=== PATIENT | male | born 1955 | race Caucasian/White ===

== ENCOUNTER 2019-01-11 09:08 | Observation (INO) | payer OTHER ==
[~2019-01-11] VITALS: Ht 172.7 cm; Wt 100.7 kg
[2019-01-11] VITALS (22 sets, daily range): BP systolic 109–153; BP diastolic 8–93
[~2019-01-11 09:08] MED LIST: ASA5UEC PO; CARVEDILOL12.5 MG PO; DICLOFENAC SODI75 MG PO; IMDUR 30 MG TAB30 M1 PO; JANUVIA50 MG PO; LIPITOR40 MG PO; LISINOPRIL20 MG PO; NITROGLYCERIN0.4 MG SL; PLAVIX 75 MG TA75 MG PO; SIMVASTATIN40 MG PO; TRILIPIX135 MG PO
[2019-01-11 10:11] LABS: HEMOGLOBIN 14.6 gm/dL (14.0-18.0); MCHC 34.8 g/dL (28.0-37.0); MPV 10.8 fl. (7.2-11.1); RBC 4.72 mil/uL (4.50-6.00); RDW-CV 12.4 % (10.5-14.5); WBC 5.4 thou/uL (4.0-11.0)
[2019-01-11 10:16] LABS: APTT 26.6 Seconds (25.0-31.3); PROTIME 10.6 Seconds (9.20-11.50)
[2019-01-11 10:19] LABS: ANION GAP 9 mmol/L (7-16); BUN 16 mg/dL (7-18); CHLORIDE 100 mmol/L (98-107); CO2 26 mmol/L (21-32); CREATININE 1.3 mg/dL (0.6-1.3); GLUCOSE 264 mg/dL (70-99); POTASSIUM 4.3 mmol/L (3.5-5.1); SODIUM 135 mmol/L (136-145)
[2019-01-11 10:23] LABS: ALBUMIN 3.7 g/dL (3.4-5.0); ALKALINE PHOSPHATASE 43 U/L (46-116); CHOLESTEROL 185 mg/dL (<200); HDL CHOLESTEROL 37 mg/dL (>40); LDL CHOLESTEROL 117 mg/dL (<100); SERUM ASSESSMENT Clear; SGOT 13 U/L (15-37); SGPT 32 U/L (30-65); TOTAL BILIRUBIN 0.5 mg/dL (<0.1-1.0); TOTAL PROTEIN 7.9 g/dL (6.4-8.2); TRIGLYCERIDE 155 mg/dL (<150); VLDL 31 mg/dL (<40)
[2019-01-11] MEDS ORDERED: FISH OIL 1,0001 EAC9 PO (16:39)
[2019-01-12] VITALS: BP 135/63
[2019-01-12 06:08] LABS: HEMATOCRIT 39.7 % (42.0-52.0); HEMOGLOBIN 13.9 gm/dL (14.0-18.0); MCH 31.1 pg (26.0-34.0); MCHC 35.2 g/dL (28.0-37.0); MCV 88.5 fL (80.0-100.0); MPV 10.6 fl. (7.2-11.1); RBC 4.48 mil/uL (4.50-6.00); RDW-CV 12.3 % (10.5-14.5); WBC 7.4 thou/uL (4.0-11.0)
[2019-01-12 06:37] LABS: ALBUMIN 3.6 g/dL (3.4-5.0); CALCIUM 9.4 mg/dL (8.5-10.1); CREATININE 1.4 mg/dL (0.6-1.3); TOTAL BILIRUBIN 0.5 mg/dL (<0.1-1.0); TOTAL PROTEIN 7.6 g/dL (6.4-8.2)
[2019-01-12 07:00] LABS: TROPONIN-I LEVEL 0.29 ng/mL (<0.06)
[2019-01-12 08:00] VITALS: BP 124/69
--- NOTE | 2019-01-12 08:05 | NUR ---
PT CARE ASSUMED AT 1930. SAT MAINTAINED IN RA. ALERT AND ORIENTED XX4. CATH SITE C/D/I. DENIES PAIN AND SOB. CALL LIGHT WITHIN REACH AND BED IN LOW POSITION. HOURLY ROUNDING DONE FOR PT SAFETY.
--- NOTE | 2019-01-12 10:00 | NUR ---
ASSUMED PT CARE AT 0800, AOX4, UP AD TYREE, 02 SAT 90'S RA. TRACING SR ON TELE. PT DENIES PAIN. PT FOR DISCHARGE. R JEROMY, C/D/I. VSS, AM ASSESSMENT CHARTED, MEDS GIVEN PER MAR. WILL CONITNUE TO MONITOR.
[2019-01-12 10:13] VITALS: BP 124/69
--- NOTE | 2019-01-12 10:55 | EKG ---
[place] [address] ELECTROCARDIOGRAM REPORT Name: LISETTE KEYES Room: [address]#: [id number] Admission: 01/11/19 Attend Phys: Shaun Flores MD, Discharge: 01/12/19 Date of : 59 Report #: [id number] THIS REPORT FOR: //name// [facility] Test Date: 2019-01-11 Test Time: 10:12:13 Pat Name: LISETTE KEYES Department: Room: [facility] Gender: M Supervisor Curing Room: [facility] : 1955 Requested By: Shaun Flores Order Number: [id number] Nanette MD: Shahriar Hayes Measurements Intervals [place] Rate: 57 P: 24 GA: 177 QRS: 15 QRSD: 98 T: 105 QT: 411 QTc: 401 Interpretive Statements Sinus rhythm Nonspecific T abnormalities, lateral leads Compared to ECG 01/18/2016 03:49:07 T-wave abnormality now present Electronically Signed On 01-12-2019 10:54:50 [employer] by Shahriar Hayes [email or web address] <ELECTRONICALLY SIGNED> By: Shahriar Hayes MD, FACC 01/12/19 1054 1012 1012 Shahriar Hayes MD, [facility] /EPI
--- NOTE | 2019-01-12 10:56 | NUR ---
DISCHARGED PLAN DISCUSSED WITH THE PT. MEDICATION PACKET GIVEN. REMINDED TO FOLLOW UP WITH CARDIOLOGY AND CARDIAC REHAB, COMMUNICATE UNDERSTANDING. ALL BELONGINGS PACKED AND CHECKED. LEFT THE UNIT AMBULATORY AT 1050.
--- NOTE | 2019-01-12 10:59 | EKG ---
[place] [address] ELECTROCARDIOGRAM REPORT Name: LISETTE KEYES Room: [address]#: [id number] Admission: 01/11/19 Attend Phys: Shaun Flores MD, Discharge: 01/12/19 Date of : 59 Report #: [id number] THIS REPORT FOR: //name// [facility] Test Date: 2019-01-11 Test Time: 14:08:01 Pat Name: LISETTE KEYES Department: Room: [facility] Gender: M Sash Maker: : 1955 Requested By: Shaun Flores Order Number: [id number] Nanette MD: Shahriar Hayes Measurements Intervals [place] Rate: 62 P: 36 [place]: 177 QRS: 33 QRSD: 99 T: 73 QT: 432 QTc: 439 Interpretive Statements Sinus rhythm Compared to ECG 01/18/2016 03:49:07 No significant changes Electronically Signed On 01-12-2019 10:59:32 TOB[employer] PREVENTION HEALTH EDUCATOR by Shahriar Hayes [email or web address] <ELECTRONICALLY SIGNED> By: Shahriar Hayes MD, [facility] 01/12/19 1059 1408 1408 Shahriar Hayes MD, FACC /EPI
--- NOTE | 2019-01-14 14:18 | CARD ---
[address] [address] CARDIAC CATH REPORT Name: LISETET KEYES Irena Room: [address] Briana Silva#: [id number] Admission: 01/11/19 Attend Phys: Shaun Flores MD, Discharge: 01/12/19 Date of : 59 Report #: [id number] THIS REPORT FOR: //name// APPROVED REPORT Study performed: 01/11/2019 10:59:01 Patient Details Patient Status: Out-Patient Room #: The patient is a 63 year-old male Event Personnel Kristel Mcnulty RN RN, Qamar Penn Reeves, Adam RTR Monitor, Shaun Flores Director Of Partner Marketing, Marija Deutsch RTR Monitor, Manuela Trujillo Operator Helper Procedures Performed Art Access - R femoral artery Left Heart Cath w/or w/o Coronaries LHC PIPE Place w/wo Plasty Single CIRC PIPE Place w/wo Plasty Addl BR OM 1 Hemostasis with Manual pressure Indication Positive stress test Risk Factors Obesity, Peripheral Vascular Disease, Hypercholesterolemia, Hypertension, Tobacco History () Previous Procedures/Diagnoses Previous PCI, Previous MIPrevious Vascular Surgery Admission/Lab Medications/Medications given during procedure Angiomax bolus and infusion Procedure Narrative The patient was brought electively to the Cardiac Catheterization Laboratory and was prepped and draped in a sterile manner. The right femoral was infiltrated with 2% Lidocaine subcutaneous anesthesia. A [place] 6 Fr sheath was inserted into the right femoral artery. Coronary angiography was performed using coronary diagnostic catheters. The right coronary system was accessed and visualized with a Diagnostic 3 DRC 6 Fr catheter. The left coronary system was accessed and visualized with a Diagnostic JL 4 6 Fr catheter. The left ventricle was accessed and visualized with a Diagnostic Pig 6 Fr catheter. Left ventricular/[place] [address] CARDIAC CATH REPORT Name: WALILISETTE Room: [address] Shira#: [id number] Admission: 01/11/19 Attend Phys: Shaun Flores MD, Discharge: 01/12/19 Date of : 59 Report #: [id number] catheter pullback. Left ventriculogram was performed in ALEMAN projection. Pre-demployment femoral angiogram was performed . Closure device was deployed with a 6 Fr Angioseal. Hemostasis was obtained with manual pressure following sheath removal without any complications. The patient tolerated the procedure well and there were no complications associated with the procedure. There was no hematoma. Intraoperative Conscious Sedation Sedation start time: 11:40 Case end Time: 13:20 Fentanyl 25 mcg Versed 2 mg Fluoro Time: 22.7 minutes Dose: DAP 436856 cGycm2 3458 mGy Contrast Type and Amount: Visipaque 300 ml Coronary Angiography The patient's coronary anatomy is right dominant. Diagnostic Cath Left Main 0% narrowing LAD 30% proximal and mid LAD narrowing Circumflex 80% proximal circumflex stenosis with 90% tubular narrowing of the proximal portion of the prominent first marginal branch Right Coronary Dominant vessel with 30% proximal narrowing Left Ventriculography The left ventricle is normal in size with normal contractility. The left ventricular ejection fraction is estimated to be 65%. Left ventricular wall motion abnormalities are not present. There is no mitral insufficiency. Hemodynamics The aortic pressure is 148/80 mmHg with a mean of 106 mmHg. The left ventricular pressure is 177/-2 mmHg with a mean of mmHg. The left ventricular end diastolic pressure is 8 mmHg. There was no gradient across the aortic valve upon pullback. PCI Technique Lesion Anticoagulation was achieved with Angiomax Drip. Patient was preloaded with Angiomax IV 16.5 ml. Percutaneous coronary intervention was performed on the first obtuse marginal branch segment. The lesion stenosis prior to intervention was 90% with JACQUELIN 3 flow. A 6FR XB 3.0 100CM Guide Catheter [place] [address] CARDIAC CATH REPORT Name: LISETTE KEYES Room: [address] Briana Silva#: [id number] Admission: 01/11/19 Attend Phys: Shaun Flores MD, Discharge: 01/12/19 Date of : 59 Report #: [id number] ostium. A IG: BMW 190cm Interventional Guidewire was used to cross the lesion. BALLOON DILATION A Balloon catheter Mini Trek RX 1.2X8 was inserted and inflated up to 18.00atm for 10seconds. Additional Inflation: 18.00atm for 8seconds. Additional Inflation: 18.00atm for 8seconds. Mini Trek 2.0 x 12 inserted/ inflated for 7 sec @ 10 MARIA ALEJANDRA, 8 sec @ 12 MARIA ALEJANDRA, and7 sec @ 10 MARIA ALEJANDRA STENT DEPLOYMENT A drug-eluting stent Alexander RX Stent 2.0X26mm was inserted and inflated up to 10.00atm for 10seconds. Additional Inflation: 12.00atm for 7seconds. POST STENT DEPLOYMENT BALLOON DILATION A Balloon catheter NC Trek RX 2.25 X 8 was inserted and inflated up to 16.00atm for 11seconds. Additional Inflation: 18.00atm for 8seconds. Final angiography reveals 10 % stenosis with JACQUELIN 3 flow. COMMENTS Percutaneous coronary intervention was technically complex by virtue of the calcified bifurcation proximal circumflex first marginal disease requiring significant lesion Preparation and bifurcation stenting PCI Technique Lesion 2 Percutaneous Coronary Intervention was performed on the proximal circumflex artery segment. Patient was preloaded with Angiomax IV 16.5 ml. The lesion stenosis prior to intervention was 80% with JACQUELIN 3 flow. A 6FR XB 3.0 100CM Guide Catheter was used to engage the left ostium. A IG: ProwaterFlex 180CM Interventional Guidewire was used to cross the lesion. Balloon Dilation A Balloon catheter Trek RX 2.5 X 12 was inserted and inflated up to 12.00atm for 10seconds. Additional Inflation: 15.00atm for 10seconds. Trek 2.5 x12 inserted/ inflated for 11 sec @ 15 MARIA ALEJANDRA Stent Deployment A drug-eluting stent Alexander RX Stent 2.25X8mm was inserted and inflated up to 16.00atm for 8seconds. Additional Inflation: 20.00atm [place] [address] CARDIAC CATH REPORT Name: LISETTE KEYES Room: [address] Briana SchwartzClinton#: [id number] Admission: 01/11/19 Attend Phys: Shaun Flores MD, Discharge: 01/12/19 Date of : 59 Report #: [id number] 10seconds. Additional Inflation: 22.00atm for 12seconds. Final angiography reveals 10 % stenosis with JACQUELIN 3 flow. Conclusion #1 significant coronary artery disease characterized by the following: A 30% proximal and mid LAD narrowing B 80% proximal circumflex stenosis with 90% tubular stenosis of the first marginal branch C 30% narrowing of the proximal portion of the dominant right coronary artery #2 normal left ventricular systolic function, estimate ejection fraction being 65% #3 normal left-sided hemodynamic study #4 successful percutaneous coronary intervention with deployment of a drug-eluting stent at site of 90% tubular first marginal stenosis with 10% residual narrowing #5 successful percutaneous coronary intervention with deployment of a drug-eluting stent at site of 80% proximal circumflex stenosis with 10% residual narrowing and JACQUELIN-3 flow the distal vessel Recommendations Cardiac Risk Reduction Program Aggressive Medical Therapy Medications Administered Aspirin (any) Clopidogrel Diagnostic Cath Approved by: Shaun Flores MD Date/Time: 01/14/2019 14:16:42 <ELECTRONICALLY SIGNED> By: Shaun Flores MD, FACC 01/14/19 1418 1418 1418Shaun Flores MD, FACC /INF
--- NOTE | 2019-01-14 15:32 | D ---
[address] [address] DISCHARGE SUMMARY Name: WALILISETTE R Room: [address] Briana Silva#: [id number] Admission: 01/11/19 Attend Phys: Shaun Flores MD, Discharge: 01/12/19 Date of : 59 Report #: [id number] THIS REPORT FOR: //name// CC: Shaun Flores [facility] Physician staff DATE OF SERVICE: 01/12/2019 FINAL DISCHARGE DIAGNOSES: 1. Abnormal nuclear stress test with inducible lateral ischemia. 2. Coronary artery disease. 3. History of remote myocardial infarction with usm-ye-gtcaxzfu cardiac arrest. 4. Severe peripheral vascular disease. 5. Hypertension. 6. Hyperlipidemia. 7. Type 2 diabetes. PROCEDURES: 01/11/2019 -- left heart catheterization, left ventriculography, selective coronary arteriography and percutaneous coronary intervention with stenting of the proximal circumflex and first marginal branch of the circumflex. The patient is a pleasant 63-year-old male with aggressive coronary and peripheral arterial disease. He is status post remote myocardial infarction and multiple stenting procedures of the circumflex. He also has had lower extremity revascularization. Of late, he notes some dyspnea on exertion, but denies chest discomfort. Recent nuclear stress test revealed large inducible lateral defect. In that setting, cardiac catheterization was performed. He had no significant stenoses of the left main, LAD, or right coronary artery. He had 90% tubular stenosis of the first marginal branch with 80%-90% proximal circumflex narrowing. I performed angioplasty with stenting of the first marginal branch and angioplasty with stenting of the proximal circumflex from which the first marginal branch emanated with 0% and 10% residual narrowings. Troponin I louisa inconsequentially to 0.29. LABORATORY DATA: On 01/12/2019 revealed a sodium 137, potassium 4.0, BUN 16, creatinine 1.4, glucose 232. Hemoglobin 13.9, white blood cell count 7400 with 114,000 platelets. There was good hemostasis at the right femoral site of catheterization. DISCHARGE MEDICATIONS: The patient was discharged to home on the following medications: Enteric coated aspirin 325 mg daily, atorvastatin 40 mg at bedtime, carvedilol 12.5 mg b.i.d., clopidogrel 75 mg daily with 600 [place] [id number] DISCHARGE SUMMARY Name: LISETTE KEYES Irena Room: [address] Shira#: [id number] Admission: 01/11/19 Attend Phys: Shanu Flores MD, Discharge: 01/12/19 Date of : 59 Report #: [id number] dillon-procedural dose, Trilipix 135 mg daily, fish oil 2 tablets daily, Januvia 100 mg daily. He is scheduled to return to see my nurse practitioner, Quiana Lal, on 01/20/2019 at 11:30 and myself 03/01/2019 at 11:40. Thus, the patient is discharged to home in stable condition with followup as iterated above. <ELECTRONICALLY SIGNED> By: Shaun Flores MD, FACC 01/14/19 1532 1454 1610Jolia Flores MD, FACC /nt
== END 2019-01-12 10:47 | disposition home or self-care (01) ==
LOC: M.CL 09:08 → M.2W 13:35 → M.TBA-CV 13:35 → M.2W 16:17
PROVIDERS: ADMIT Internal Medicine
DX: I25.10 Atherosclerotic heart disease of native coronary artery without angina pectoris (principal); I25.2 Old myocardial infarction; E11.51 Type 2 diabetes mellitus with diabetic peripheral angiopathy without gangrene; I73.9 Peripheral vascular disease, unspecified; I10 Essential (primary) hypertension; E78.5 Hyperlipidemia, unspecified

== ENCOUNTER 2020-04-03 09:05 | Observation (INO) | payer OTHER ==
[~2020-04-03] VITALS: Ht 172.7 cm; Wt 96.2 kg
[2020-04-03] VITALS (16 sets, daily range): BP systolic 108–143; BP diastolic 60–86
--- NOTE | ~2020-04-03 | D ---
[address] [address] DISCHARGE SUMMARY Name: LISETTE KEYES Room: [address] Briana Silva#: [id number] Admission: 04/03/20 Attend Phys: Shaun Flores MD, Discharge: 04/04/20 Date of : 59 Report #: [id number] THIS REPORT FOR: cc: Marty Austin Aaron DO Shaun Flores MD [facility] DATE OF SERVICE: 04/04/2020 FINAL DISCHARGE DIAGNOSES: 1. Abnormal nuclear stress test. 2. Coronary artery disease. 3. History of remote myocardial infarction. 4. Status post percutaneous coronary intervention to the circumflex. 5. Aortic stenosis. 6. Carotid stenosis. 7. Peripheral vascular disease with right lower extremity claudication. 8. Hyperlipoproteinemia. 9. Type 2 diabetes. PROCEDURES: 04/03/2020 -- Left heart catheterization, selective coronary arteriography, percutaneous coronary intervention with deployment of a drug-eluting stent in the first marginal branch of the circumflex and angioplasty of the proximal circumflex. The patient is a pleasant 64-year-old male with diabetes and hyperlipidemia. He has known peripheral vascular disease and is status post bilateral lower extremity revascularization percutaneously on the right and with fem-pop bypass on the left. Recently, he has noted some dyspnea on exertion and right lower extremity discomfort with ambulation. Nuclear stress test revealed inducible lateral ischemia. In this context, cardiac catheterization was performed. This revealed 90% in-stent restenosis in the first marginal branch of the circumflex with 70% proximal circumflex narrowing involving the takeoff of the first marginal. There were 40% LAD and right coronary narrowings. There was a 50 mmHg pullback gradient across the aortic valve reflecting moderately severe aortic stenosis. The patient underwent PCI with deployment of a 2.0 x 15 mm [place] drug-eluting stent in the first marginal with 10% residual narrowing and angioplasty of the proximal circumflex with 10% residual narrowing. Troponin louisa inconsequentially to 0.09. He did well post-procedurally and there was good hemostasis at the right femoral site of catheterization. He ambulated in [place] [address] DISCHARGE SUMMARY Name: LISETTE KEYES [address]#: [id number] Admission: 04/03/20 Attend Phys: Shaun Flores MD, Discharge: 04/04/20 Date of : 59 Report #: [id number] Laboratory revealed sodium 138, potassium 3.7, BUN 16, creatinine 1.2, glucose 216. Hemoglobin 13.8, white blood cell count 6100, 98,000 platelets. The patient is discharged to home on the following medications: 1. Clopidogrel 75 mg daily with a 300 mg dillon-procedural dose. 2. Trilipix 135 mg daily. 3. Carvedilol 12.5 mg b.i.d. 4. Enteric-coated aspirin 325 mg daily. 5. Januvia 50 mg daily. 6. Isosorbide mononitrate 30 mg daily. 7. Glipizide 10 mg b.i.d. 8. Diltiazem 180 mg daily. 9. Atorvastatin 40 mg daily. He is scheduled to have a CT angiogram of the aorta with runoff in the right lower extremity because of claudication in the right lower extremity and this is scheduled for approximately 4 weeks. I will plan to see the patient in followup on 04/25/2020 at 0900 at the [place] office. Therefore, the patient is discharged to home in stable condition on the aforementioned medications with followup as described above. By: [id number] Flores MD, FACC /nt
[~2020-04-03 09:05] MED LIST changes: +DILTIAZEM ER180 M2 PO; +FISH OIL 1,0001 EAC9 PO; +GLIPIZIDE 10 MG10 MG PO
[2020-04-03 09:42] LABS: HEMATOCRIT 43.7 % (42.0-52.0); HEMOGLOBIN 15.1 gm/dL (14.0-18.0); MCH 29.5 pg (26.0-34.0); MCHC 34.5 g/dL (28.0-37.0); MCV 85.5 fL (80.0-100.0); MPV 10.3 fl. (7.2-11.1); RBC 5.11 mil/uL (4.50-6.00); RDW-CV 13.1 % (10.5-14.5); WBC 6.5 thou/uL (4.0-11.0)
[2020-04-03 09:55] LABS: ANION GAP 13 mmol/L (7-16); BUN 19 mg/dL (7-18); CALCIUM 9.7 mg/dL (8.5-10.1); CHLORIDE 102 mmol/L (98-107); CO2 23 mmol/L (21-32); CREATININE 1.3 mg/dL (0.6-1.3); GLUCOSE 383 mg/dL (70-99); SODIUM 138 mmol/L (136-145)
[2020-04-03 10:00] LABS: ALBUMIN 3.8 g/dL (3.4-5.0); ALKALINE PHOSPHATASE 54 U/L (46-116); SGOT 9 U/L (15-37); SGPT 23 U/L (30-65); TOTAL BILIRUBIN 0.3 mg/dL (<0.1-1.0); TOTAL PROTEIN 7.7 g/dL (6.4-8.2)
[2020-04-03] MEDS ORDERED: LIPITOR40 MG PO (10:04)
[2020-04-03 10:17] LABS: CHOLESTEROL 216 mg/dL (<200); HDL CHOLESTEROL 43 mg/dL (>40); LDL CHOLESTEROL 121 mg/dL (<100); TRIGLYCERIDE 262 mg/dL (<150); VLDL 52 mg/dL (<40)
[2020-04-03 10:18] LABS: SERUM ASSESSMENT Clear
[2020-04-03 10:22] LABS: APTT 25.3 Seconds (25.0-31.3); PROTIME 10.3 Seconds (9.20-11.50)
--- NOTE | 2020-04-03 14:01 | EKG ---
[place] [address] ELECTROCARDIOGRAM REPORT Name: WALILISETTE Room: [address]R.#: [id number] Admission: 04/03/20 Attend Phys: Chelsey Leblanc Discharge: Date of : 59 Date of Service: 04/03/20 1021 Report #: [id number] THIS REPORT FOR: //name// [facility] Test Date: 2020-04-03 Test Time: 10:21:22 Pat Name: LISETTE KEYES Department: Room: [facility] Gender: M Commercial Pilot: : 1955 Requested By: Shaun Flores Order Number: [id number] Reading MD: Shaun Flores Measurements Intervals [place] Rate: 52 P: 20 ME: 182 QRS: 13 QRSD: 101 T: 108 QT: 442 QTc: 411 Interpretive Statements Sinus rhythm Abnormal R-wave progression, late transition Nonspecific T abnormalities, lateral leads Compared to ECG 01/11/2019 14:08:01 T-wave abnormality now present Electronically Signed On 04-03-2020 14:01:47 POLITICAL SCIENTIST by Shaun Flores [email or web address] <ELECTRONICALLY SIGNED> By: Shaun Flores MD, [facility] 04/03/20 1401 1021 1021 Shaun Flores MD, [facility] /EPI
--- NOTE | 2020-04-03 14:04 | EKG ---
[place] [address] ELECTROCARDIOGRAM REPORT Name: WALILISETTE [address]#: [id number] Admission: 04/03/20 Attend Phys: Chelsey Leblanc Discharge: Date of : 59 Date of Service: 04/03/20 1339 Report #: [id number] THIS REPORT FOR: //name// [facility] Test Date: 2020-04-03 Test Time: 13:39:53 Pat Name: LISETTE KEYES Department: Room: [facility] Gender: M Manager Market Research: : 1955 Requested By: Shaun Flores Order Number: [id number] Nanette MD: Shaun Flores Measurements Intervals [place] Rate: 55 P: 19 MS: 189 QRS: 38 QRSD: 103 T: 122 QT: 441 QTc: 422 Interpretive Statements Sinus rhythm Nonspecific T abnormalities, lateral leads Compared to ECG 04/03/2020 10:21:22 No significant changes Electronically Signed On 04-03-2020 14:04:04 CUPOLA PATCHER by Shaun Flores [email or web address] <ELECTRONICALLY SIGNED> By: Shaun Flores MD, [facility] 04/03/20 1404 1339 1339 Shaun Flores MD, [facility] /EPI
--- NOTE | 2020-04-03 14:31 | CARD ---
[address] [address] CARDIAC CATH REPORT Name: LISETTE KEYES Irena Room: [address] Briana Silva#: [id number] Admission: 04/03/20 Attend Phys: Shaun Flores MD, Discharge: Date of : 59 Report #: [id number] THIS REPORT FOR: cc: Marty Austin Aaron DO ~ Sahun Flores MD [facility] APPROVED REPORT Study performed: 04/03/2020 11:30:58 Patient Details Patient Status: Out-Patient Room #: The patient is a 64 year-old male Event Personnel Shaun Flores Director Automotive, Elva Celis RN Pediatric Clinical Nurse Specialist, Qamar Penn DIRECTOR EHS Monitor, Marija Deutsch RTR Scrub Procedures Performed Art Access - R femoral artery* Left Heart Cath w/or w/o Coronaries [id number] [facility] PIPE Place w/wo Plasty Single OM [id number] PTCA Single Vessel CIRC [id number] PCISINGLE Indication Positive stress test Risk Factors Dysplipidemia Obesity, Peripheral Vascular Disease, Hypercholesterolemia, Hypertension Previous Procedures/Diagnoses Previous PCI Admission/Lab Medications/Medications given during procedure Angiomax bolus and infusion Procedure Narrative The patient was brought electively to the Cardiac Catheterization Laboratory and was prepped and draped in a sterile manner. The right femoral was infiltrated with subcutaneous anesthesia. A [place] 6 FR sheath was inserted into the right femoral artery. Coronary angiography was performed using coronary diagnostic catheters. The right coronary system was accessed and visualized with a Diagnostic catheter. The left coronary system was accessed and visualized with a [facility] [address] [place] [address] CARDIAC CATH REPORT Name: LISETTE KEYES Room: [address] Briana Silva#: [id number] Admission: 04/03/20 Attend Phys: Shaun Flores MD, Discharge: Date of : 59 Report #: [id number] Diagnostic catheter. The left ventricle was accessed and visualized with a Diagnostic catheter. Left ventricular/Aortic Valve gradient assessed via catheter pullback. Pre-demployment femoral angiogram was performed . Closure device was deployed with a 6 Fr Mynx. The patient tolerated the procedure well and there were no complications associated with the procedure. There was no hematoma. Intraoperative Conscious Sedation Sedation start time: 1153 Case end Time: 1242 Fentanyl 25 mcg Versed 2 mg Fluoro Time: 15.1 minutes Contrast Type and Amount: Visipaque 260 ml Coronary Angiography The patient's coronary anatomy is right dominant. Diagnostic Cath Left Main 0% narrowing LAD 40% proximal and mid vessel narrowing Circumflex 90% tubular in-stent restenosis of the first marginal branch of the circumflex with 70% proximal circumflex narrowing Right Coronary 40% proximal and mid vessel narrowing Left Ventriculography Left Ventriculography was not performed. Hemodynamics The aortic pressure is 115/63 mmHg with a mean of 82 mmHg. The left ventricular pressure is 168/3 mmHg with a mean of mmHg. The left ventricular end diastolic pressure is 8 mmHg. Pullback from the left ventricle to the aorta revealed a 50 mm gradient across the aortic valve. PCI Technique Lesion Anticoagulation was achieved with Angiomax. Percutaneous coronary intervention was performed on the first obtuse marginal branch segment. The lesion stenosis prior to intervention was 90% with JACQUELIN 2 flow. A 6FR XB 3.0 100CM Guide Catheter was used to engage the ostium. BALLOON DILATION A Balloon catheter Mini Trek RX 1.2X8 was inserted and inflated up to 16.00atm for 12seconds. Additional Inflation: 16.00atm for 4seconds. [place] [address] CARDIAC CATH REPORT Name: LISETTE KEYES Irena Room: [address]#: [id number] Admission: 04/03/20 Attend Phys: Shaun Flores MD, Discharge: Date of : 59 Report #: [id number] Additional Inflation: 16.00atm for 8seconds. Then, A balloon Catheter NC Trek RX 2.0x12 was inserted and inflated up to 15 anand for 9 sec. Additional Inflation: 15 anand for 5 sec. Additional Inflation: 16 anand for 5 sec. Additional Inflation: 16 anand for 7 sec. STENT DEPLOYMENT A drug-eluting stent Alexander RX Stent 2.0X15mm was inserted and inflated up to 12.00atm for 11seconds. Additional Inflation: 14.00atm for 7seconds. Additional Inflation: 15.00atm for 7seconds. Final angiography reveals 10 % stenosis with JACQUELIN 3 flow. PCI Technique Lesion 2 Percutaneous Coronary Intervention was performed on the proximal circumflex artery segment. The lesion stenosis prior to intervention was 70% with JACQUELIN 3 flow. A 6FR XB 3.0 100CM Guide Catheter was used to engage the ostium. A IG: [place] 190cm Interventional Guidewire was used to cross the lesion. Balloon Dilation A Balloon catheter NC Trek RX 2.5 X 8 was inserted and inflated up to 14.00atm for 13seconds. Additional Inflation: 15.00atm for 13seconds. Final angiography reveals 10 % stenosis with JACQUELIN 3 flow. Conclusion 1. Significant coronary artery disease characterized by the following: A 40% proximal and mid LAD narrowing B 70. Proximal circumflex stenosis with 90% first marginal in-stent restenosis C modest size dominant right coronary artery with 40% proximal and mid vessel narrowing 2. Moderately severe aortic stenosis with a 50 mm gradient on pullback across the aortic valve 3. Successful PCI with deployment of drug-eluting stent at the site of 90% first marginal stenosis with 10% residual narrowing and JACQUELIN-3 flow [place] [address] CARDIAC CATH REPORT Name: LISETTE KEYES Room: [address] Briana Silva#: [id number] Admission: 04/03/20 Attend Phys: Shaun Flores MD, Discharge: Date of : 59 Report #: [id number] 4. successful PTCA of the proximal circumflex at the takeoff of the first marginal branch with 10% residual narrowing following dilatation Recommendations Cardiac Risk Reduction Program Aggressive Medical Therapy Medications Administered Clopidogrel Diagnostic Cath Approved by: Shaun Flores MD Date/Time: 04/03/2020 14:28:16 <ELECTRONICALLY SIGNED> By: Shaun Flores MD, FACC 04/03/20 1430 143 1430Shaun Flores MD, FACC /INF
--- NOTE | 2020-04-03 16:28 | NUR ---
RECEIVED REPORT FROM TRAIN OPERATIONS MANAGER. PT ARRIVED TO TELE FLOOR AROUND 1310. ADMISSION, ASSESSMENT, VITALS, EDUATION AND HISTORY COMPLETED CHARTED. MEDS PER EMAR. PT ON MOBILITY RESTRICTION TILL 1845 FOR POST GROIN CATH. GROIN CDI. SO AT BEDSIDE. PT TOLERATING DIET. VOIDING PER URINAL. DENIES PAIN. CALL LIGHT WITHIN REACH. HOURLY ROUNDING PERFORMED. FALL PRECATUTIONS IN PLACE.
--- NOTE | 2020-04-03 18:30 | NUR ---
RECEVIED REPORT. PT ARRIVED TO TELE FLOOR AROUND 1310, ASSUMED CARE. ADMISSION ASSESSMENT, HISTORY AND VITALS COMPLETED CHARTED. RIGHT GROIN CATH SITE CDI. POST CATH VITALS CHARTED. MEDS PER EMAR. NEGATIVE DEVELOPER IN PLACE. PT UP AD TYREE. CALL LIGHT WITHIN REACH.
[2020-04-04 04:26] VITALS: BP 139/72
[2020-04-04 04:38] LABS: HEMATOCRIT 40.3 % (42.0-52.0); HEMOGLOBIN 13.8 gm/dL (14.0-18.0); MCH 29.3 pg (26.0-34.0); MCHC 34.3 g/dL (28.0-37.0); MCV 85.3 fL (80.0-100.0); MPV 10.3 fl. (7.2-11.1); RBC 4.73 mil/uL (4.50-6.00); RDW-CV 13.2 % (10.5-14.5); WBC 6.1 thou/uL (4.0-11.0)
[2020-04-04 04:55] LABS: ALBUMIN 3.3 g/dL (3.4-5.0); CALCIUM 9.2 mg/dL (8.5-10.1); CREATININE 1.2 mg/dL (0.6-1.3); POTASSIUM 3.7 mmol/L (3.5-5.1); TOTAL BILIRUBIN 0.4 mg/dL (<0.1-1.0); TOTAL PROTEIN 6.7 g/dL (6.4-8.2); TROPONIN-I LEVEL 0.09 ng/mL (<0.06)
--- NOTE | 2020-04-04 05:23 | NUR ---
ASSUMED CARE OF PT AFTER REPORT AT 1930. PT A&OX4. VSS. PHYSICAL ASSESSMENT COMPLETED AND CHARTED. PT ON RA. PT TRACING SR/SB/PAC ON TELE. PT UPADLIB TO RESTROOM. PT DENIES CHEST PAIN. POST CATH SITE TO RIGHT GROIN CLEAN, DRY & INTACT. NO BLEEDING NOTED. TENDERNESS NOTED BUT REFUSED PAIN MEDICATION. CALL LIGHT WITHIN REACH.
[2020-04-04 08:00] VITALS: BP 122/69
--- NOTE | 2020-04-04 11:05 | EKG ---
[place] [id number] ELECTROCARDIOGRAM REPORT Name: JAN KEYESCriss Osborn Room: [address]#: [id number] Admission: 04/03/20 Attend Phys: Chelsey Leblanc Discharge: Date of : 59 Date of Service: 04/04/20 0347 Report #: [id number] THIS REPORT FOR: //name// [facility] Test Date: 2020-04-04 Test Time: 03:47:32 Pat Name: LISETTE KEYES Department: Room: [facility] Gender: M Inspector [employer]: [email or web address] : 1955 Requested By: Shaun Flores Order Number: [id number] Reading MD: Shahriar Hayes Measurements Intervals [place] Rate: 57 P: 22 MO: 83 QRS: 32 QRSD: 100 T: 87 QT: 440 QTc: 429 Interpretive Statements Sinus rhythm Short MO interval Probable left atrial enlargement Borderline low voltage, extremity leads Nonspecific T abnrm, anterolateral leads Baseline wander in lead(s) V2 Compared to ECG 04/03/2020 13:39:53 Short MO interval now present T-wave abnormality no longer present Electronically Signed On 04-04-2020 11:05:13 [employer]PRENTICE by Shahriar Hayes [email or web address] <ELECTRONICALLY SIGNED> By: Shahriar Hayes MD, [facility] 04/04/20 1105 6 6 Shahriar Hayes MD, [facility] /EPI
[2020-04-04 11:17] VITALS: BP 122/69
== END 2020-04-04 12:15 | disposition home or self-care (01) ==
LOC: M.CL 09:05 → M.TBA-CV 12:59 → M.2W 12:59
PROVIDERS: ADMIT Internal Medicine; ATTEND Internal Medicine
DX: R94.39 Abnormal result of other cardiovascular function study (principal); E78.5 Hyperlipidemia, unspecified; E66.9 Obesity, unspecified; E78.00 Pure hypercholesterolemia, unspecified; I10 Essential (primary) hypertension; I25.2 Old myocardial infarction; I25.10 Atherosclerotic heart disease of native coronary artery without angina pectoris; I35.0 Nonrheumatic aortic (valve) stenosis; I65.29 Occlusion and stenosis of unspecified carotid artery; E11.51 Type 2 diabetes mellitus with diabetic peripheral angiopathy without gangrene; Z20.822 Contact with and (suspected) exposure to COVID-19

== ENCOUNTER → 2020-04-19 | Outpatient (CLI) | payer OTHER ==
[2020-04-19 09:27] LABS: CREATININE 1.2 mg/dL (0.6-1.3)
== END ==
LOC: M.LAB 04-11 14:37
PROVIDERS: ATTEND Internal Medicine
DX: I70.201 Unspecified atherosclerosis of native arteries of extremities, right leg (principal); M48.07 Spinal stenosis, lumbosacral region; I70.1 Atherosclerosis of renal artery; Z95.820 Peripheral vascular angioplasty status with implants and grafts

== ENCOUNTER → 2020-05-01 | Outpatient (CLI) | payer OTHER ==
[~2020-05-01] VITALS: Ht 172.7 cm; Wt 96.2 kg
[2020-05-01 10:51] VITALS: BP 143/81
[2020-05-01 11:09] LABS: HEMATOCRIT 44.1 % (42.0-52.0); HEMOGLOBIN 15.2 gm/dL (14.0-18.0); MCH 29.6 pg (26.0-34.0); MCHC 34.5 g/dL (28.0-37.0); MCV 85.9 fL (80.0-100.0); MPV 11.2 fl. (7.2-11.1); RBC 5.14 mil/uL (4.50-6.00); RDW-CV 13.3 % (10.5-14.5)
[2020-05-01 11:17] LABS: CALCIUM 9.2 mg/dL (8.5-10.1); CREATININE 1.1 mg/dL (0.6-1.3); POTASSIUM 4.4 mmol/L (3.5-5.1)
[2020-05-01 11:18] LABS: APTT 24.5 Seconds (25.0-31.3); PROTIME 10.2 Seconds (9.20-11.50)
[2020-05-01 11:22] LABS: TOTAL BILIRUBIN 0.4 mg/dL (<0.1-1.0); TOTAL PROTEIN 7.9 g/dL (6.4-8.2)
[2020-05-01 16:00] VITALS: BP 146/89
[2020-05-01 16:18] VITALS: BP 129/78
[2020-05-01 16:50] VITALS: BP 127/78
== END | disposition home or self-care (01) ==
LOC: M.INT 09:57
PROVIDERS: ATTEND Radiology Diagnostic Radiology
DX: I70.211 Atherosclerosis of native arteries of extremities with intermittent claudication, right leg (principal); M79.604 Pain in right leg; I10 Essential (primary) hypertension; E11.9 Type 2 diabetes mellitus without complications; I25.10 Atherosclerotic heart disease of native coronary artery without angina pectoris; I25.2 Old myocardial infarction; F17.210 Nicotine dependence, cigarettes, uncomplicated; Z98.890 Other specified postprocedural states; Z79.899 Other long term (current) drug therapy; Z79.82 Long term (current) use of aspirin